=== PATIENT | male | born 1980 | race African-American/Black ===

== ENCOUNTER 2017-01-12 12:42 | Inpatient (IN) | payer MEDICAID ==
[~2017-01-12] VITALS: Ht 172.7 cm; Wt 53.5 kg
[~2017-01-12 12:42] MED LIST: SERT50TA12 PO
[2017-01-12] MEDS ORDERED: PARO10TA89 PO (12:46)
[2017-01-12 13:28] LABS: BASOPHILS % (AUTO) 0.7 % (0.0-2.0); EOSINOPHILS % (AUTO) 1.9 % (1.0-6.0); HEMATOCRIT 42.4 % (41-53); HEMOGLOBIN 13.6 g/dL (13.5-17.5); LYMPHOCYTES % (AUTO) 23.2 % (22.0-44.0); MEAN CORPUSCULAR HEMOGLOBIN 29.2 pg (26.0-34.0); MEAN CORPUSCULAR VOLUME 91 fL (80-100); MONOCYTES # (AUTO) 0.2 K/uL (0.1-1.0); NEUTROPHILS # (AUTO) 2.8 K/uL (1.8-7.7); NEUTROPHILS % (AUTO) 68.2 % (40.0-70.0); PLATELET COUNT (AUTO) 148 K/uL (150-450); RED BLOOD CELL COUNT(AUTO) 4.64 MIL/uL (4.50-5.90); RED CELL DISTRIBUTION WIDTH 13.8 % (11.5-14.5); WHITE BLOOD COUNT (AUTO) 4.1 K/uL (4.5-11.0)
[2017-01-12 13:38] LABS: ANION GAP 7 mmol/L (8-16); CALCIUM, TOTAL 8.4 mg/dL (8.8-10.5); CARBON DIOXIDE 30 mmol/L (22-29); CHLORIDE 103 mmol/L (98-107); CREATININE 1.12 mg/dL (0.60-1.30); GLOMERULAR FILTR. RATE CALC > 60 mL/min (>60); POTASSIUM 4.6 mmol/L (3.5-5.1); SODIUM SERUM 140 mmol/L (136-145); UREA NITROGEN, BLOOD 11 mg/dL (7-18)
[2017-01-12 13:43] LABS: ALANINE AMINOTRANSFERASE 22 U/L (12-78); ALBUMIN 3.8 g/dL (3.4-5.0); ASPARTATE AMINOTRANSFERASE 24 U/L (15-37); BILIRUBIN,TOTAL 0.4 mg/dL (0.1-1.0); TOTAL PROTEIN, SERUM 7.3 g/dL (6.4-8.2)
[2017-01-12] MEDS ORDERED: HALOPERIDOL 5 MG TABLET PO PRN (18:45)
[2017-01-12] MEDS ORDERED: LORazepam 2 MG TABLET PO PRN (18:45)
[2017-01-12] MEDS ORDERED: ZOLPIDEM TARTRATE 10 MG TABLET PO PRN (18:45)
[2017-01-12 20:34] VITALS: BP 113/74
[2017-01-13 08:05] VITALS: BP 119/74
[2017-01-13] MEDS: PARoxetine HCL 20 MG TABLET PO SCH (09:19)
[2017-01-13 16:59] VITALS: BP 120/90
[2017-01-14 08:05] VITALS: BP 121/96
[2017-01-14] MEDS: PARoxetine HCL 20 MG TABLET PO SCH (08:26)
[2017-01-14 16:40] VITALS: BP 131/90
[2017-01-15] MEDS: PARoxetine HCL 20 MG TABLET PO SCH (08:19)
[2017-01-15 09:45] VITALS: BP 131/85
[2017-01-15] MEDS: MULTIVITAMINS WITH MINERALS, THERAPEUTIC TABLET PO SCH (10:25)
[2017-01-15 16:50] VITALS: BP 130/89
[2017-01-16 08:25] VITALS: BP 146/87
[2017-01-16] MEDS: MULTIVITAMINS WITH MINERALS, THERAPEUTIC TABLET PO SCH (09:42)
[2017-01-16] MEDS: PARoxetine HCL 20 MG TABLET PO SCH (09:42)
[2017-01-16 16:36] VITALS: BP 118/64
[2017-01-17 08:29] VITALS: BP 121/75
[2017-01-17] MEDS: PARoxetine HCL 20 MG TABLET PO SCH (09:12)
[2017-01-17] MEDS: MULTIVITAMINS WITH MINERALS, THERAPEUTIC TABLET PO SCH (09:12)
[2017-01-17 17:31] VITALS: BP 130/78
[2017-01-18] MEDS: PARoxetine HCL 20 MG TABLET PO SCH (08:32)
[2017-01-18] MEDS: MULTIVITAMINS WITH MINERALS, THERAPEUTIC TABLET PO SCH (08:32)
[2017-01-18 08:38] VITALS: BP 117/81
[2017-01-18 16:44] VITALS: BP 126/81
[2017-01-18] MEDS ORDERED: HYPROMELLOSE 0.5% 15 ML OPHTHALMIC SOLUTION OU PRN (20:30)
[2017-01-19 08:00] VITALS: BP 112/60
[2017-01-19] MEDS: PARoxetine HCL 20 MG TABLET PO SCH (08:22)
[2017-01-19] MEDS: MULTIVITAMINS WITH MINERALS, THERAPEUTIC TABLET PO SCH (08:23)
[2017-01-19 16:47] VITALS: BP 125/76
[2017-01-20] MEDS: PARoxetine HCL 20 MG TABLET PO SCH (08:21)
[2017-01-20] MEDS: MULTIVITAMINS WITH MINERALS, THERAPEUTIC TABLET PO SCH (08:21)
[2017-01-20 09:13] VITALS: BP 126/77
[2017-01-20] MEDS ORDERED: PARO20TA24 PO (13:46)
[2017-01-20] MEDS ORDERED: MULT-248 PO (13:46)
== END 2017-01-20 15:05 | disposition home or self-care (01) | DRG 751 ==
LOC: EMS 12:44 → EEVIPCON 12:44 → 3EI 19:24
DX: F33.2 Major depressive disorder, recurrent severe without psychotic features (principal); D69.6 Thrombocytopenia, unspecified; R45.851 Suicidal ideations
CPT/HCPCS: 99285; G0480

== ENCOUNTER 2018-05-06 14:54 | Emergency (ER) | payer MEDICAID, OTHER ==
[~2018-05-06] VITALS: Ht 175.3 cm; Wt 68.2 kg
[~2018-05-06 14:54] MED LIST changes: +MULT-248 PO; +PARO20TA24 PO; -SERT50TA12 PO
[2018-05-06 16:25] LABS: BASOPHILS % (AUTO) 0.7 % (0.0-2.0); EOSINOPHILS % (AUTO) 1.1 % (1.0-6.0); HEMATOCRIT 43.4 % (41-53); HEMOGLOBIN 14.4 g/dL (13.5-17.5); LYMPHOCYTES # (AUTO) 1.4 K/uL (1.0-4.8); LYMPHOCYTES % (AUTO) 28.8 % (22.0-44.0); MEAN CORPUSCULAR HEMOGLOBIN 30.1 pg (26.0-34.0); MEAN CORPUSCULAR HGB CONC 33.2 G/dL (31.0-37.0); MEAN CORPUSCULAR VOLUME 91 fL (80-100); MONOCYTES # (AUTO) 0.4 K/uL (0.1-1.0); MONOCYTES % (AUTO) 7.3 % (2.0-9.0); NEUTROPHILS # (AUTO) 3.1 K/uL (1.8-7.7); NEUTROPHILS % (AUTO) 62.1 % (40.0-70.0); PLATELET COUNT (AUTO) 171 K/uL (150-450); RED BLOOD CELL COUNT(AUTO) 4.79 MIL/uL (4.50-5.90); RED CELL DISTRIBUTION WIDTH 13.7 % (11.5-14.5)
[2018-05-06 16:32] LABS: AMPHET/METH SCREEN,URINE NEGATIVE (NEGATIVE); BARBITURATE SCREEN, URINE NEGATIVE (NEGATIVE); BENZODIAZEPINES SCREEN,URINE NEGATIVE (NEGATIVE); CANNABINOID SCREEN,URINE NEGATIVE (NEGATIVE); COCAINE SCREEN,URINE NEGATIVE (NEGATIVE); METHADONE SCREEN, URINE NEGATIVE (NEGATIVE); OPIATE SCREEN,URINE NEGATIVE (NEGATIVE)
[2018-05-06 16:34] LABS: PHENCYCLIDINE SCREEN,URINE NEGATIVE (NEGATIVE)
[2018-05-06 16:43] LABS: ANION GAP 7 mmol/L (8-16); CALCIUM, TOTAL 9.2 mg/dL (8.8-10.5); CARBON DIOXIDE 32 mmol/L (22-29); CHLORIDE 101 mmol/L (98-107); CREATININE 1.15 mg/dL (0.60-1.30); GLOMERULAR FILTR. RATE CALC > 60 mL/min (>60); GLUCOSE,RANDOM 62 mg/dL (70-110); POTASSIUM 3.2 mmol/L (3.5-5.1); SODIUM SERUM 140 mmol/L (136-145); UREA NITROGEN, BLOOD 10 mg/dL (7-18)
[2018-05-06 16:48] LABS: ALANINE AMINOTRANSFERASE 23 U/L (12-78); ALKALINE PHOSPHATASE 70 U/L (46-116); ASPARTATE AMINOTRANSFERASE 26 U/L (15-37); BILIRUBIN,TOTAL 0.5 mg/dL (0.1-1.0); TOTAL PROTEIN, SERUM 8.4 g/dL (6.4-8.2)
[2018-05-06 17:01] VITALS: BP 140/78
== END 2018-05-06 18:02 | disposition home or self-care (01) ==
LOC: EMS 14:55
DX: F32.9 Major depressive disorder, single episode, unspecified (principal); F41.9 Anxiety disorder, unspecified
CPT/HCPCS: 36415; 80053; 80307; 85025; 99284; G0480